=== PATIENT | female | born 1955 | race Caucasian/White ===

== ENCOUNTER 2016-09-21 00:05 | Emergency (ER) | payer OTHER ==
[2016-09-21 00:29] VITALS: BP 161/100
[2016-09-21] MEDS ORDERED: AMITRIPTYLINE H25 M2 PO (00:30)
[2016-09-21] MEDS ORDERED: TRIAMCINOLONE A15 G1 TOP (00:36)
--- NOTE | 2016-09-21 00:36 | ED SKIN/ALLERGY COMPLAINT ---
History of Present Illness General Chief Complaint: Skin Rash/ Abcess Stated Complaint: RASH ON RIGHT SIDE, ITCHY PER PT Source: patient Exam Limitations: no limitations Vital Signs & Intake/Output Vital Signs & Intake/Output Vital Signs Date Time Temp Pulse Resp B/P Pulse O2 O2 Flow FiO2 Ox Delivery Rate 09/21 0029 103 20 161/100 97 Room Air Allergies Coded Allergies: MDX - Codeine (CODEINE) (Intermediate, VOMITING 11/02/11) MDX - Morphine (MORPHINE) (Intermediate, VOMITING 11/02/11) MDX - Acetaminophen (From TYLENOL) (VOMITING 11/02/11) Reconcile Medications Amitriptyline HCl 25 MG TABLET 1 TAB PO QPM SLEEP (Reported) Triamcinolone Acetonide 0.1 % CREAM..G. 0.1 % TOP BID RASH Triage Note: PER PT RASH TO RT RIB AREA SINCE WEDNESDAY VERY ITCHY BUT NO REAL PAIN NO KNOWN ALLERGEN. GOOD RELIEF WITH CALAMINE LOTION, ALMOST GONE BUT HAS TO WORK SO NEED A DX Triage Nurses Notes Reviewed? yes Onset: Abrupt Duration: day(s): Timing: recent history Severity: mild Location: torso No Modifying Factors: none HPI: 60-year-old female comes into emergency room for further evaluation for rash on the right side of her chest is been itching. Denies any pain. Denies any pain prior to development of the rash. Patient reports that she was using some calamine lotion at home and the rash is improved. Rash does not follow a line. Denies any other associated symptoms. Denies any pain. Denies any fever chills vomiting. (BÁRBARA PRADHAN) Past History Travel History Traveled to [place] past 21 day No Medical History Any Pertinent Medical History? 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 No (BÁRBARA PRADHAN) Review of Systems Review of Systems Constitutional: Reports: no symptoms. EENTM: Reports: no symptoms. Respiratory: Reports: no symptoms. Cardiovascular: Reports: no symptoms. GI: Reports: no symptoms. Genitourinary: Reports: no symptoms. Musculoskeletal: Reports: no symptoms. Skin: Reports: see HPI. Neurological/Psychological: Reports: no symptoms. Hematologic/Endocrine: Reports: no symptoms. Immunologic/Allergic: Reports: no symptoms. All Other Systems: Reviewed and Negative (BÁRBARA PRADHAN) Physical Exam Physical Exam General Appearance: well developed/nourished Head: atraumatic Eyes: Bilateral: normal appearance. Ears, Nose, Throat: normal ENT inspection, hearing grossly normal Neck: normal inspection Respiratory: no respiratory distress Back: normal inspection Extremities: normal inspection, normal range of motion, no edema Neurologic/Psych: awake, alert, oriented x 3, normal mood/affect Skin: intact, rash Skin Problem Location: torso (right side) Skin Problem Character: maculopapular, some crusting, does not follow a dermatome pattern, located in one area measuring about 4" x 4", no warmth, no discharge, Lymphatic: no anterior cervical josemanuel (BÁRBARA PRADHAN) Progress Differential Diagnosis: abscess/cellulitis, allergic reaction, contact dermatitis, drug reaction, erythema multiforme, meningitis/sepsis, piyriasis rosea, shingles, syphilis/gonococcemia, urticaria Plan of Care: Rash does not have a shingles appearance. Patient started on a topical steroid cream. Clinically looks well. Nontoxic-appearing. In no apparent distress. (BÁRBARA PRADHAN) Departure Departure Disposition: HOME OR SELF CARE Condition: Stable Clinical Impression Primary Impression: Contact dermatitis Referrals: SAM ALATORRE (PCP/Family) Additional Instructions: Use triamcinolone cream as prescribed. Have rash rechecked by primary care doctor in 2-3 days. Return if any other concerns worsening symptoms. Please go over all results of today's visit with your primary care doctor. Contact your primary care doctor to let them know you were here in the emergency room. There may be nonspecific findings which may not be related to your visit today here in the emergency room but may require further evaluation and chronic monitoring by your primary care doctor. If you had a laceration today the chance of foreign body always remains. You should follow-up with your primary care doctor for recheck in 3-5 days for a wound check. If you had an x-ray done there is a chance that a fracture could have been missed on initial read and you should follow-up with your primary care doctor for repeat x-rays if symptoms persist. If your blood pressure was elevated here in the emergency room please have rechecked by her primary care doctor within the next 48 hours by your primary care doctor. If you were prescribed a narcotic here in the emergency room or any type of controlled substances you're not allowed to drive while taking this medication or operate any type of heavy machinery. Narcotics can make you feel lightheaded dizziness nausea and can cause constipation. You may need to black pickler a stool softener. Thank you for choosing [facility] emergency room. Please return to the emergency room immediately if you have any other concerns worsening of symptoms. Departure Forms: Customer Survey General Discharge Information Prescriptions: Current Visit Scripts Triamcinolone Acetonide 0.1 % TOP BID #45 GM (BÁRBARA PRADHAN) PA/BRINE SUPERVISOR Co-Sign Statement Statement: ED Attending supervision documentation- [] I saw and evaluated the patient. I have also reviewed all the pertinent lab results and diagnostic results. I agree with the findings and the plan of care as documented in the PA's/BRINE SUPERVISOR's documentation. [X] I have reviewed the ED Record and agree with the PA's/BRINE SUPERVISOR's documentation. [] Additions or exceptions (if any) to the PAs/BRINE SUPERVISOR's note and plan are summarized below: [] (RADHA DAVIS,MARIO Sun)
== END 2016-09-21 00:47 ==
LOC: ERH 00:05
DX: L25.9 Unspecified contact dermatitis, unspecified cause (principal)

== ENCOUNTER 2016-12-06 12:11 | Emergency (ER) | payer OTHER ==
[~2016-12-06] VITALS: Ht 160 cm; Wt 72.6 kg
[~2016-12-06 12:11] MED LIST: AMITRIPTYLINE H25 M2 PO; TRIAMCINOLONE A15 G1 TOP
[2016-12-06 12:14] VITALS: BP 137/92
--- NOTE | 2016-12-06 12:32 | ED SKIN/ALLERGY COMPLAINT ---
History of Present Illness General Chief Complaint: Skin Rash/ Abcess Stated Complaint: RASH Source: patient, old records Exam Limitations: no limitations Vital Signs & Intake/Output Vital Signs & Intake/Output Vital Signs Date Time Temp Pulse Resp B/P B/P Pulse O2 O2 Flow FiO2 Mean Ox Delivery Rate 12/06 1214 97.7 97 15 137/92 98 Room Air Room Air Allergies Coded Allergies: codeine (Intermediate, VOMITING 12/06/16) morphine (Intermediate, VOMITING 12/06/16) acetaminophen (From TYLENOL) (VOMITING 12/06/16) Reconcile Medications Amitriptyline HCl 25 MG TABLET 1 TAB PO QPM SLEEP (Reported) Diphenhydramine HCl (Benadryl Allergy) 25 MG TABLET 1-2 TAB PO Q6P PRN rash Prednisone 20 MG TABLET 1 TAB PO BID contact dermatitis Triamcinolone Acetonide 0.1 % CREAM..G. 0.1 % TOP BID RASH Triage Note: PT TO ED FOR BILAT EYE RASH. PT REPORTS ALLERGIC TO POISON IRIS "AND IF IT BLOWS IN THE WIND I CAN CATCH IT SOMETIMES." SMALL DRY RASH NOTED. NO SWELLING, NO DISCHARGE OR CHANGE IN VISION. Triage Nurses Notes Reviewed? yes Onset: Morning Duration: hour(s):, constant, continues in ED Timing: recent history Severity: mild Location: face Possible Factors: exposure to allergen Modifying Factors: Improves With: scratching. LMP (ages 10-50): post menopausal : No Patient currently breastfeeds: No HPI: Several hours prior to admission patient noted rash to right upper eyelid and cheek that is puffy and itchy. She denies fever chills nausea vomiting diarrhea abdominal pain chest pain shortness breath headache dysuria bleeding gardening new soap shampoo detergent lotion Past History Travel History Traveled to [place] past 21 day No Medical History Any Pertinent Medical History? 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 No Review of Systems Review of Systems Constitutional: Reports: no symptoms. EENTM: Reports: no symptoms. Respiratory: Reports: no symptoms. Cardiovascular: Reports: no symptoms. GI: Reports: no symptoms. Genitourinary: Reports: no symptoms. Musculoskeletal: Reports: no symptoms. Skin: Reports: see HPI, rash. Neurological/Psychological: Reports: no symptoms. Hematologic/Endocrine: Reports: no symptoms. Immunologic/Allergic: Reports: no symptoms. All Other Systems: Reviewed and Negative Physical Exam Physical Exam General Appearance: well developed/nourished, alert, awake, anxious, mild distress Head: atraumatic Eyes: Bilateral: PERRL, EOMI. Ears, Nose, Throat: normal pharynx, normal ENT inspection, hearing grossly normal Neck: normal inspection, supple Respiratory: normal breath sounds Cardiovascular: regular rate/rhythm Gastrointestinal: soft, non-tender Back: normal inspection Extremities: normal inspection, normal range of motion, no edema Neurologic/Psych: awake, alert, oriented x 3, normal mood/affect Reflexes: 2+: bicep (R), bicep (L). Skin: intact, warm/dry, rash Skin Problem Location: face Skin Problem Character: rash Lymphatic: no anterior cervical josemanuel Progress Differential Diagnosis: abscess/cellulitis, allergic reaction, urticaria Plan of Care: Current Medications Sig/Nelida Start time Last Medication Dose Stop Time Status Admin Diphenhydramine HCl 25 MG ONCE ONE 12/06 1245 UNVr (Benadryl) 12/06 1246 Prednisone 60 MG ONCE ONE 12/06 1245 UNVr 12/06 1246 Departure Departure Time of Disposition: 1232 Disposition: HOME OR SELF CARE Condition: Stable Clinical Impression Primary Impression: Contact dermatitis Qualifiers: Contact dermatitis type: unspecified Contact dermatitis trigger: unspecified trigger Qualified Code: L25.9 - Unspecified contact dermatitis, unspecified cause Referrals: SAM ALATORRE (PCP/Family) Departure Forms: Customer Survey General Discharge Information Prescriptions: Current Visit Scripts Prednisone 1 TAB PO BID #10 TAB Diphenhydramine HCl (Benadryl Allergy) 1-2 TAB PO Q6P PRN rash #30 TAB Ref 1
[2016-12-06] MEDS ORDERED: PREDNISONE20 M1 PO (12:33)
[2016-12-06] MEDS ORDERED: BENADRYL ALLERG25 M2 PO (12:33)
== END 2016-12-06 12:49 ==
LOC: ERH 12:11
DX: L25.9 Unspecified contact dermatitis, unspecified cause (principal)

== ENCOUNTER 2018-03-11 12:32 | Emergency (ER) | payer OTHER ==
[~2018-03-11] VITALS: Ht 160 cm; Wt 68.0 kg
[~2018-03-11 12:32] MED LIST changes: +BENADRYL ALLERG25 M2 PO; +CYCLOBENZAPRINE10 M1 PO; +IBUPROFEN800 M1 PO; +PREDNISONE20 M1 PO
[2018-03-11] MEDS ORDERED: AMITRIPTYLINE H25 M2 PO (14:50)
[2018-03-11 14:57] LABS: ABSOLUTE BASOPHIL COUNT 0 /CUMM (0.0-0.2); ABSOLUTE EOSINOPHIL COUNT 0.1 /CUMM (0.0-0.7); ABSOLUTE GRANULOCYTE CT 5.3 /CUMM (1.4-6.5); ABSOLUTE LYMPH COUNT 2.2 /CUMM (1.2-3.4); ABSOLUTE MONOCYTE COUNT 0.6 /CUMM (0.10-0.60); BASOPHIL % 0.4 % (0.0-2.0); EOSINOPHIL % 1.8 % (0-5); GRANULOCYTE % 64.2 % (42.2-75.2); HEMATOCRIT 40.9 % (37-47); MEAN CORPUSCULAR HGB 27.7 PG (27.0-31.0); MEAN CORPUSCULAR HGB CONC 32.7 G/DL (33.0-37.0); MEAN CORPUSCULAR VOLUME 84.8 FL (81.0-99.0); MEAN PLATELET VOLUME 7.4 FL (7.4-10.4); PLATELET COUNT 376 /CUMM (130-400); RBC DISTRIBUTION WIDTH 14.1 % (11.5-14.5); RED BLOOD CELL CT 4.82 /CUMM (4.20-5.40); WHITE BLOOD CELL COUNT 8.3 /CUMM (4.8-10.8)
--- NOTE | 2018-03-11 15:22 | ED GENERAL ADULT ---
History of Present Illness General Chief Complaint: Ear Complaints Stated Complaint: LEFT EAR PAIN Source: patient Exam Limitations: no limitations Vital Signs & Intake/Output Vital Signs & Intake/Output Vital Signs Date Time Temp Pulse Resp B/P B/P Pulse O2 O2 Flow FiO2 Mean Ox Delivery Rate 03/11 1625 98.6 81 16 124/82 98 Room Air 03/11 1306 Room Air 03/11 1236 96.8 87 16 147/99 99 Room Air Allergies Coded Allergies: codeine (Intermediate, VOMITING 12/06/16) morphine (Intermediate, VOMITING 12/06/16) acetaminophen (From TYLENOL) (VOMITING 12/06/16) Reconcile Medications Amitriptyline HCl 25 MG TABLET 1 TAB PO QPM SLEEP (Reported) Amoxicillin 400 MG/5 ML SUSP.RECON 10 ML PO BID otitis media Triage Note: PT STATES SHE IS HAVING LEFT EAR PAIN THAT RADIATES IN TO HER NECK FOR THE PAST TWO DAYS. PT WAS TAKING OTC MEDS BUT NOTHING HLEPING Triage Nurses Notes Reviewed? yes Onset: Gradual Duration: day(s): Timing: constant HPI: 62-year-old female with a history of renal stones and insomnia presenting with left ear pain 2 days. Patient reports gradual onset of a dull ache that radiates down her left neck and behind her left ear. Denies fevers, otic discharge, decreased hearing, or URI symptoms. (Roxana Osorio) Past History Travel History Traveled to [place] past 21 day No Medical History Any Pertinent Medical History? 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 No (Roxana Osorio) Review of Systems Review of Systems Constitutional: Reports: no symptoms. EENTM: Reports: see HPI. Respiratory: Reports: no symptoms. Cardiovascular: Reports: no symptoms. GI: Reports: no symptoms. Genitourinary: Reports: no symptoms. Musculoskeletal: Reports: no symptoms. Skin: Reports: no symptoms. Neurological/Psychological: Reports: no symptoms. Hematologic/Endocrine: Reports: no symptoms. Immunologic/Allergic: Reports: no symptoms. All Other Systems: Reviewed and Negative (Roxana Osorio) Physical Exam Physical Exam General Appearance: well developed/nourished, no apparent distress, alert, awake Comments: Gen.: Well-nourished, well-developed, no acute distress. Head: Normocephalic, atraumatic. Eyes: Normal inspection bilaterally Ears: Normal inspection bilaterally, left external auditory canal is unremarkable there is no edema or exudate, the left TM is dull with a poor light reflex, positive tenderness over the mastoid bone and left lateral cervical muscles Nose: Normal inspection Throat: Normal inspection Neck: Normal inspection, no cervical lymphadenopathy Lungs: clear to auscultation bilaterally, normnal breath sounds Heart: regular rate and rhythm Abdomen: soft and non-tender Extremities: Normal inspection Neurologic: alert and oriented x3, steady gait Skin: warm and dry Psychiatric: Normal mood and affect, no apparent delusions or hallucinations, behavior appropriate Core Measures ACS in differential dx? No CVA/TIA Diagnosis: No Sepsis Present: No Sepsis Focused Exam Completed? No (Roxana Osorio) Progress Differential Diagnoses I considered the following diagnoses in my evaluation of the patient: [ Supportive otitis media versus serous otitis media versus mastoiditis versus neck soft tissue infection] Plan of Care: Orders Procedure Date/time Status CBC WITHOUT DIFFERENTIAL 03/11 1351 Complete Current Medications Sig/Nelida Start time Last Medication Dose Stop Time Status Admin Aspirin 325 MG ONCE ONE 03/11 1400 CAN (Aspirin) 03/11 1401 Laboratory Tests 03/11/18 1439: CBC w Diff NO MAN DIFF REQ, RBC 4.82, MCV 84.8, MCH 27.7, MCHC 32.7 L, RDW 14.1 , MPV 7.4, Gran % 64.2, Lymphocytes % 26.2, Monocytes % 7.4, Eosinophils % 1.8, Basophils % 0.4, Absolute Granulocytes 5.3, Absolute Lymphocytes 2.2, Absolute Monocytes 0.6, Absolute Eosinophils 0.1, Absolute Basophils 0 03/11/18 1351: Sodium Cancelled, Potassium Cancelled, Chloride Cancelled, Carbon Dioxide Cancelled, Anion Gap Cancelled, BUN Cancelled, Creatinine Cancelled, BUN/ Creatinine Ratio Cancelled, Glucose Cancelled, Calcium Cancelled, Total Bilirubin Cancelled, AST Cancelled, ALT Cancelled, Alkaline Phosphatase Cancelled, Total Protein Cancelled, Albumin Cancelled, Globulin Cancelled, Albumin/Globulin Ratio Cancelled Patient states that she will only allow one tube of blood to be drawn due to a fear of needles. It was explained to the patient that to obtain both the CBCs and CMP he would only require 1 needlestick, she is still persistent that she would only allow one tube of blood to be drawn. Therefore only THREAD MILLING MACHINE SET UP OPERATOR was obtained to evaluate her WBC which was within normal limits. Patient was signed out to JORGE Rutherford with CT of the ear pending to evaluate for mastoiditis versus soft tissue infection. CT was obtained without contrast as the patient is declining IV due to her fear of needles. If CT is unremarkable the plan is for discharge home with Rx amoxicillin to cover for otitis media. She was counseled on supportive care and strict return precautions. (Roxana Osorio) CT scan is unremarkable. Patient will be treated for otitis media with amoxicillin. Reviewed results of today's visit with patient. Advised her to follow-up with her primary care doctor discussed return precautions patient agrees the plan (Milton Arias) Initial ED EKG: none (Roxana Osorio) Diagnostic Imaging: Viewed by Me: CT Scan. Discussed w/RAD: CT Scan. Radiology Impression: PATIENT: PEYMAN BARLOW PRESENT AGE: 62 PATIENT ACCOUNT NO: [id number] : 56 LOCATION: [facility] ORDERING PHYSICIAN: Roxana PATEL SERVICE DATE: 03/11/18 EXAM TYPE : CAT - CT INT AUD CANALS WO IV CONT EXAMINATION: CT INTERNAL AUDITORY CANALS WITHOUT CONTRAST CLINICAL INFORMATION: Mastoiditis versus deep space neck infection. COMPARISON: No relevant prior imaging. TECHNIQUE: Contiguous axial imaging was performed without intravenous administration of contrast. DLP: 368.78 mGy-cm FINDINGS: Right temporal bone: The external auditory canal is normal and there is no abnormal thickening of the tympanic membrane. The ossicular chain is intact. Mastoid air cells and the middle ear cavity are well aerated. The otic capsule is intact and labyrinthine structures are morphologically normal. The internal auditory canal is unremarkable. Left temporal bone: There is a small amount of debris presumably representing cerumen within the left external auditory canal. There is no abnormal thickening of the tympanic membrane. The ossicular chain is intact. Mastoid air cells and the middle ear cavity are well aerated. The otic capsule is intact and labyrinthine structures are morphologically normal. The internal auditory canal is unremarkable. Other: Limited visualization of intracranial structures reveals no abnormal finding. Visualized paranasal sinuses are well-aerated. IMPRESSION: Small amount of debris presumably representing cerumen within the left external auditory canal. Otherwise normal CT scan of the temporal bones. No evidence of otomastoiditis. DICTATED BY: Laz Bhatia MD DATE/TIME DICTATED:03/11/181626 JEEP MECHANIC:DENISHA DATE/TIME TRANSCRIBED:03/11/181626 CONFIDENTIAL, DO NOT COPY WITHOUT APPROPRIATE AUTHORIZATION. <Electronically signed in Other Vendor System> SIGNED BY: Laz Bhatia MD 03/11/18 [id number] (Milton Arias) Departure Departure Disposition: HOME OR SELF CARE Condition: Stable Clinical Impression Primary Impression: Otitis media Referrals: Manny DAVIS,Dragan Carmichael (PCP/Family) Additional Instructions: Take amoxicillin as prescribed. Follow-up with the ear nose and throat doctor for further evaluation. Return to the emergency department for any new or worsening symptoms. Departure Forms: Customer Survey General Discharge Information Prescriptions: Current Visit Scripts Amoxicillin 10 ML PO BID #200 ML (Roxana Osorio) PA/SOCIALLY RESPONSIBLE INVESTMENT ADVISER Co-Sign Statement Statement: ED Attending supervision documentation- I saw and evaluated the patient. I have also reviewed all the pertinent lab results and diagnostic results. I agree with the findings and the plan of care as documented in the PA's/SOCIALLY RESPONSIBLE INVESTMENT ADVISER's documentation. x I have reviewed the ED Record and agree with the PA's/SOCIALLY RESPONSIBLE INVESTMENT ADVISER's documentation. [] Additions or exceptions (if any) to the PAs/SOCIALLY RESPONSIBLE INVESTMENT ADVISER's note and plan are summarized below: [] (Jesus DAVIS,Yosef) Critical Care Note Critical Care Note Critical Care Time: non-applicable (Roxana Osorio)
[2018-03-11] MEDS ORDERED: AMOXICILLI400 MG/51 PO (15:49)
[2018-03-11 16:25] VITALS: BP 124/82
--- NOTE | 2018-03-11 16:36 | CT SCAN REPORT ---
EXAMINATION: CT INTERNAL AUDITORY CANALS WITHOUT CONTRAST CLINICAL INFORMATION: Mastoiditis versus deep space neck infection. COMPARISON: No relevant prior imaging. TECHNIQUE: Contiguous axial imaging was performed without intravenous administration of contrast. DLP: 368.78 mGy-cm FINDINGS: Right temporal bone: The external auditory canal is normal and there is no abnormal thickening of the tympanic membrane. The ossicular chain is intact. Mastoid air cells and the middle ear cavity are well aerated. The otic capsule is intact and labyrinthine structures are morphologically normal. The internal auditory canal is unremarkable. Left temporal bone: There is a small amount of debris presumably representing cerumen within the left external auditory canal. There is no abnormal thickening of the tympanic membrane. The ossicular chain is intact. Mastoid air cells and the middle ear cavity are well aerated. The otic capsule is intact and labyrinthine structures are morphologically normal. The internal auditory canal is unremarkable. Other: Limited visualization of intracranial structures reveals no abnormal finding. Visualized paranasal sinuses are well-aerated. IMPRESSION: Small amount of debris presumably representing cerumen within the left external auditory canal. Otherwise normal CT scan of the temporal bones. No evidence of otomastoiditis.
== END 2018-03-11 16:52 ==
LOC: ERH 12:32
PROVIDERS: Physician Assistant
DX: H66.92 Otitis media, unspecified, left ear (principal); H92.02 Otalgia, left ear; M54.2 Cervicalgia
CPT/HCPCS: J3490